=== PATIENT | female | born 1980 | race Two or more races ===

== ENCOUNTER 2018-02-13 20:01 | Emergency (ER) | payer OTHER ==
[~2018-02-13] VITALS: Ht 165.1 cm; Wt 97.3 kg
[~2018-02-13 20:01] MED LIST: ADV100 IH; ALBU8.5H8 IH; GEMF600T5 PO; LORA10TA60 PO
[2018-02-13] MEDS ORDERED: KETOROLAC TROMETHAMINE 60 MG/2 ML VIAL IM ONE (21:30)
[2018-02-13 22:25] VITALS: BP 121/78
== END 2018-02-13 22:31 | disposition home or self-care (01) ==
LOC: EMS 20:02
DX: M25.562 Pain in left knee (principal); J45.909 Unspecified asthma, uncomplicated; E78.00 Pure hypercholesterolemia, unspecified; Z79.899 Other long term (current) drug therapy
CPT/HCPCS: 73562; 96372; 99283; J1885